=== PATIENT | female | born 1985 | race Caucasian/White ===

== ENCOUNTER 2017-03-28 17:31 | Inpatient (IN) | payer BC ==
[2017-03-28] VITALS (8 sets, daily range): BP systolic 99–119; BP diastolic 56–70
[~2017-03-28] VITALS: Ht 157.5 cm; Wt 73.1 kg
[~2017-03-28 17:31] MED LIST: ADDERALL15 MG PO
[2017-03-28] MEDS ORDERED: PRENATAL TABLE1 EAC3 PO (18:24)
[2017-03-28 18:36] LABS: EOSINOPHIL (%) 0.7 % (0-5); EOSINOPHIL COUNT 0.1 K/uL (0-0.3); HEMATOCRIT 34.7 % (36.0-46.0); IMMATURE GRANULOCYTE (%) 0.5 % (0.0-0.7); IMMATURE GRANULOCYTE COUNT 0.1 K/uL; INSTRUMENT ABS NEUTROPHIL CT 8.1 K/uL; LYMPHOCYTE COUNT 1.6 K/uL (1.0-2.8); MCH 34.6 PG (29.0-34.0); MCHC 35.4 G/DL (30.0-36.0); MCV 97.5 FL (83-99); MEAN PLAT.VOLUME 11.8 uM^3 (9.5-12.4); MONOCYTE (%) 5.9 % (3-12); MONOCYTE COUNT 0.6 K/uL (0-0.8); NEUTROPHIL (%) 77.2 % (45-76); NEUTROPHIL COUNT 8.1 K/uL (1.8-6.4); PLATELET COUNT 126 K/uL (156-360); RBC DIS.WIDTH-CV 12.6 % (11.8-14.6); RED BLOOD COUNT 3.56 M/uL (3.80-5.20); WHITE BLOOD COUNT 10.5 K/uL (4.1-10.2)
[2017-03-29] VITALS (19 sets, daily range): BP systolic 96–128; BP diastolic 51–73
[2017-03-29] MEDS ORDERED: IBUPROFEN800 MG PO (13:12)
[2017-03-30 08:38] VITALS: BP 106/64
[2017-03-30 22:19] VITALS: BP 118/69
== END 2017-03-31 12:32 | disposition home or self-care (01) | DRG 775 ==
LOC: LDRP-OP 17:31 → 2WEST 17:33 → LDRP-OP 04-20 10:22
PROVIDERS: Advanced Practice Midwife
PROC: 3E0P7GC Introduction of Other Therapeutic Substance into Female Reproductive, Via Natural or Artificial Opening (ICD-10-PCS; principal; 2017-03-29)
PROC: 3E0S3CZ (ICD-10-PCS; principal; 2017-03-29)
PROC: 00HU33Z Insertion of Infusion Device into Spinal Canal, Percutaneous Approach (ICD-10-PCS; principal; 2017-03-29)
PROC: 0KQM0ZZ Repair Perineum Muscle, Open Approach (ICD-10-PCS; principal; 2017-03-29)
PROC: 10907ZC Drainage of Amniotic Fluid, Therapeutic from Products of Conception, Via Natural or Artificial Opening (ICD-10-PCS; principal; 2017-03-29)
PROC: 10E0XZZ Delivery of Products of Conception, External Approach (ICD-10-PCS; principal; 2017-03-29)
DX: O48.0 Post-term pregnancy (principal); O99.824 Streptococcus B carrier state complicating childbirth; Z3A.41 41 weeks gestation of pregnancy; O70.1 Second degree perineal laceration during delivery; O77.0 Labor and delivery complicated by meconium in amniotic fluid; Z37.0 Single live birth
CPT/HCPCS: 85025; C1755; G0378; J0595; J2795; J3370; J7120